=== PATIENT | male | born 1975 | race Caucasian/White ===

== ENCOUNTER 2024-03-12 23:15 | Emergency (ER) | payer SELFPAY ==
[2024-03-12 23:23] VITALS: BP 142/98; PULSE 79; RESP 18; TEMP 36.8; O2SAT 99
[2024-03-13] MEDS: Sulfameth/Trimeth DS TAB 1 TAB PO (00:10)
[2024-03-13] MEDS: cefTRIAXone 1 GM VIAL IM (00:10)
--- NOTE | 2024-03-13 00:10 | ED.GENADUL_ITS ---
Discharge Plan Disposition Patient Disposition: Home Condition: Good Discharge Details Clinical Impression: Cellulitis Primary Care Provider: None,None ED Provider: Lashonda Shah Home Meds and New Rx's Prescriptions: New sulfamethoxazole-trimethoprim [Bactrim DS] 800-160 mg tablet 1 tab PO Q12H Qty: 14 0RF sulfamethoxazole-trimethoprim [Bactrim DS] 800-160 mg tablet 1 tab PO Q12H Qty: 14 0RF Discharge Instructions Instructions: Cellulitis (ED) Additional Instructions: Continuing taking the cephalexin you were prescribed. Add Bactrim every 12 hours. Take all all your antibiotics until they are all gone. Your symptoms may worsen slightly over the next 24 hours; after that they should not get any worse. After 48 yours your symptoms should be IMPROVING. If this is not the case please seek medical attention immediately. Call your primary care doctor today to schedule an appointment before the end of the week to followup on your visit here. Return to the emergency department for new or worsening symptoms including severe pain, inability to move your hand or fingers, numbness/tingling, fever, or if you have any other concerns. HPI General Mode of arrival: ambulatory . Date/Time Provider Initiated Documentation: 03/12/24 23:28 . Limitations to Documentation: no limitations . Information obtained by: patient . HPI Narrative: 48yo previously healthy male presenting with right hand pain and swelling. Punched a wall 1 week ago and has had an abrasion to his 5th kunckle since then, scab keeps flaking off. Today noted increasing pain and swelling across the dorsum of his hand. Seen at urgent care this afternoon at 6pm and started on cephalexin, has had one dose. Presents to the ED as he has had skin MRSA infections in the past and is concerned that this may be occuring again. Symptoms maybe slightly worse since this afternoon but not dramatically so. Pain is mild to moderate, 4/10, and worse with movement. No numbness, tinlging, or weakness in hand or wrist. He is otherwise in his usual state of health with no fevers, chills, rash, nausea, vomiting, abdominal pain, or other concerns. UTD on tetanus. Related Data Home Medications Medication Instructions Recorded Confirmed sulfamethoxazole 800 1 tab PO Q12H #14 tabs 03/13/24 mg-trimethoprim 160 mg tablet (Bactrim DS) sulfamethoxazole 800 1 tab PO Q12H #14 tabs 03/13/24 mg-trimethoprim 160 mg tablet (Bactrim DS) Previous Rx's Medication Instructions Recorded sulfamethoxazole 800 1 tab PO Q12H #14 tabs 03/13/24 mg-trimethoprim 160 mg tablet (Bactrim DS) sulfamethoxazole 800 1 tab PO Q12H #14 tabs 03/13/24 mg-trimethoprim 160 mg tablet (Bactrim DS) Allergies Allergy/AdvReac Type Severity Reaction Status Date / Time Barbiturates Allergy Mild N/V Unverified 03/12/24 23:28 codeine [Codeine] Allergy Mild VOMITING Unverified 03/12/24 23:28 General Stated Complaint: Orthopedic DWAIN: 4 Review of Systems Narrative: see HPI Exam Narrative Exam Narrative: General: Alert, well appearing, well nourished, in no acute distress. Head: Normocephalic, atraumatic Neck: Trachea midline, ?Neck supple. Cardiac: ?No cyanosis. Well perfused. Resp: No respiratory distress. Speaking in full sentences. . Abd: ?Non distended Extremities: ?Right hand with warmth, erythema, and swelling to volar surface around base of 5th digit extending across and down hand. Small abrasion to 5th knuckle. No purulence or weeping. No pain over palpation of flexor sheaths. Sensation intact to light touch in median, ulnar, and radial distributions. Good motion and strength in digits with flexion, extension, and abduction. Brisk capillary refill throughout. Neurologic: GCS 15. ? Moves all extremities freely against gravity Course Vital Signs Vital signs: Vital Signs Temperature 36.8 C 03/12/24 23:23 Pulse 79 03/12/24 23:23 Respiratory Rate 18 03/12/24 23:23 Blood Pressure 142/98 H 03/12/24 23:23 Pulse Oximetry 99 03/12/24 23:23 Temperature 36.8 C 03/12/24 23:23 Pulse 79 03/12/24 23:23 Respiratory Rate 18 03/12/24 23:23 Respiratory Effort Normal 03/12/24 23:26 Blood Pressure 142/98 H 03/12/24 23:23 Pulse Oximetry 99 03/12/24 23:23 Oxygen Delivery Method Room Air 03/12/24 23:23 Oxygen Flow Rate 0 03/12/24 23:23 Pain Level 4 03/12/24 23:23 Medical Decision Making 48yo previously healthy male presenting with right hand pain and swelling. Punched a wall 1 week ago and has had an abrasion to his 5th kunckle; today erythema, warmth, and swelling to hand. Seen at and prescribed cephalexin; concerned he may have MRSA as he has had this in the past. Slightly hyperrensive on arrival, vital signs otherwise reassuring. Exam with erythema, swelling, and tenderness to volar surface of hand. Good sensation and strength throughout, pain is moderate, able to fully flex and extend digits and no tenderness over flexor tendon sheaths. Consistent with celluliits. No indication of deep space infection. Not septic; would not get labs. Discussed with patient, though no clear purulence today, given his history will add Bactrim to his previously prescribed cephalexin to cover staph/MRSA. Will also give single dose of IM ceftriaxone here. Ideally would get hand XR to evaluate for foreign body or underlying fracture however patient refused and would prefer to monitor closely for resolution of symptoms with treatment which is not unreasonable. Signs of worsening infection were reviewed and the importance of watching carefully and re-presenting for medical care was stressed, as well as the risk to permanent hand function/disability should he not present appropriately for medical care. He verbalized understanding. Discharged home; discharge instructions and return precautions were reviewed with patient; all questions were answered and he is in full agreement with the plan. Quality:[facility] Health Related Social Needs: No Data to Display PFSH All Active Problems (Updated 03/13/24 @ 00:19 by Lashonda Shah MD) Cellulitis (Acute) Social History Smoking/Tobacco Use Status: Never Smoking risk assessment performed?: Yes Drug use: Never Do you feel safe at home: Yes PAWSS Have you Been Recently Intoxicated or Drunk Within the Last 30 days?: No Have you Ever Experienced Previous Episodes of Alcohol Withdrawal?: No Have you ever Experienced Withdrawal Seizures?: No Have you ever Experienced Delirium Tremens(DT)s?: No Have you ever undergone Alcohol Rehabilitation Treatment (i.e, inpt ot outpatient treatment programs)?: No Have you ever Experienced Blackouts?: No Have you ever Combined Alcohol with other Downers within the last 90 days?: No Have you ever Combined Alcohol with any other Substance of Abuse during the last 90 days?: No Positive Blood Alcohol level on Presentation? [PCS.BAL]: No Evidence of Increased Autonomic Activity (i.e. HR>120, tremor, sweating, agitation, nausea)?: No Result: 0
[2024-03-13] MEDS: Lidocaine 1% Pres-Free 5 ML VIAL (00:17)
[2024-03-13 00:30] VITALS: BP 144/92; PULSE 81; RESP 18; O2SAT 99
== END 2024-03-13 00:31 | disposition home or self-care (01) ==
LOC: ER 03-13 00:53
PROVIDERS: Emergency Provider Student in an Organized Health Care Education/Training Program
DX: L03.113 Cellulitis of right upper limb (principal); M79.641 Pain in right hand; R22.31 Localized swelling, mass and lump, right upper limb; W22.09XA Striking against other stationary object, initial encounter
CPT/HCPCS: 96372; 99284; 99283; J0696; J2003

== ENCOUNTER 2024-03-21 12:49 | Outpatient (REF) | payer SELFPAY ==
[2024-03-21 12:11] LABS: Abs Immature Grans 0.11 10^3/uL (0.0-0.06); Absolute Basophil Count 0.06 10^3/uL (0.0-0.2); Absolute Monocyte Count 0.99 10^3/uL (0.1-0.8); Absolute Neutrophil Count 18.28 10^3/uL (1.2-6.7); Basophils % 0.3 %; HCT 46.1 % (40.0-50.0); HGB 15.1 g/dL (13.5-17.5); Immature Grans % 0.5 %; Lymphocytes % 3.8 %; MCH 30.2 pg (27.0-33.0); MCHC 32.8 % (32.0-36.0); MCV 92 fL (80-95); MPV 8.3 fL (8.0-11.0); Monocytes % 4.9 %; Neutrophils % 90.5 %; Platelet Count 302 10^3/uL (130-400); RDW 11.5 % (11.8-14.1); RDW-SD 38.7 fL
[2024-03-21 12:12] LABS: Absolute Lymphocyte Count 0.77 10^3/uL (1.2-3.4)
[2024-03-21 13:02] LABS: ALT 22 U/L (16-63); AST 15 U/L (15-37); Albumin 4.1 g/dL (3.4-5.0); Alkaline Phosphatase 66 U/L (46-116); Anion Gap 9.2 mmol/L (3-11); BUN 13 mg/dL (7-18); Bilirubin, Total 0.7 mg/dL (0.2-1.0); CO2 28.8 mmol/L (21.0-32.0); CREATININE 1.1 mg/dL (0.70-1.30); Calcium 9.4 mg/dL (8.5-10.1); Chloride 104 mmol/L (98-107); Estimated GFR 81.78 (mL/min/1.73m2); Glucose 126 mg/dL (74-106); Potassium 3.8 mmol/L (3.5-5.1); Sodium 142 mmol/L (136-145); Total Protein 7.4 g/dL (6.4-8.2)
[2024-03-21 18:19] LABS: C Diff PCR Positive (Negative)
== END 2024-03-21 12:50 | disposition home or self-care (01) ==
LOC: LBN 12:49
PROVIDERS: Visit Provider Naturopath
DX: T36.1X5A Adverse effect of cephalosporins and other beta-lactam antibiotics, initial encounter (principal); X58.XXXA Exposure to other specified factors, initial encounter
CPT/HCPCS: 36415; 80053; 87493; 85025